=== PATIENT | female | born 1965 ===

== ENCOUNTER 2023-07-12 08:15 | Inpatient (IN) | payer OTHER ==
[~2023-07-12] VITALS: Ht 157.5 cm; Wt 77.1 kg
[2023-07-12 09:50] LABS: HEMATOCRIT 36.9 % (36.0-45.00); MEAN CELL VOLUME 86.7 fL (80.00-100.00); MEAN CORPUSCULAR HEMOGLOBIN 30.6 pg (27.00-32.0); MEAN CORPUSCULAR HGB CONC 35.3 g/dl (32.0-36.0); PLATELET COUNT 260 K/uL (150-450); RED BLOOD COUNT 4.25 M/uL (4.00-6.00); RED CELL DISTRIBUTION WIDTH 13.6 % (11.5-14.5)
[2023-07-12 10:09] LABS: PH,URINE 5.5 (5.0-8.0); URINE APPEARANCE Clear; URINE BILIRRUBIN Negative (NEGATIVE); URINE BLOOD Negative; URINE COLOR Yellow; URINE GLUCOSE Negative (NEGATIVE); URINE LEUKOCYTE Negative; URINE NITRATE Negative; URINE PROTEIN Negative (NEGATIVE); URINE UROBILINOGEN 0.2 E.U./dl
[2023-07-12 10:18] LABS: INR < 0.93; PARTIAL THROMBOPLASTIN TIME 27.9 SECONDS (22.0-34.0); PROTHROMBIN TIME 9.7 SECONDS (9.0-11.5)
[2023-07-12 10:21] LABS: URINE BACTERIA 12.5 uL (0.0-1933); URINE EPITHELIAL CELLS 8.1 uL (0.0-38.8); URINE RBC 4.1 uL (0.0-20.8); URINE WBC 3.8 uL (0.0-23.2)
[2023-07-12 10:35] LABS: ALBUMIN 3.7 gm/dL (3.4-5.0); BILIRUBIN TOTAL 0.47 mg/dL (0.3-1.2); CALCIUM 9.2 mg/dL (8.5-10.1); CREATININE SERUM 0.9 mg/dL (0.55-1.02); GFR 64.77; GLOBULINA 3.9 G/DL (2.4-3.5); POTASSIUM 4.2 mEq/L (3.5-5.1); TOTAL PROTEIN 7.6 gm/dL (6.4-8.2)
[2023-07-12] MEDS ORDERED: COZAAR100 MG PO (10:39)
[2023-07-12] MEDS ORDERED: CRESTOR40 MG PO (10:40)
[2023-07-12] MEDS ORDERED: PROAIR RESPICL90 MCG IH (10:40)
[2023-07-12] MEDS ORDERED: SYMBICORT 16010.2 GM IH (10:40)
[2023-07-12] MEDS ORDERED: NABUMETONE750 MG PO (10:43)
[2023-07-12] MEDS ORDERED: ALPRAZOLAM ODT1 MG PO (10:43)
[2023-07-12] MEDS ORDERED: ZEGERID 40 MG1 EACH PO (10:44)
[2023-07-12] MEDS ORDERED: LITHOBID300 M1 PO (10:44)
[2023-07-12] MEDS ORDERED: LEXAPRO5 MG PO (10:44)
[2023-07-18 22:29] LABS: HEMATOCRIT 36.2 % (36.0-45.00); HEMOGLOBIN 12.2 g/dL (12.0-15.00); MEAN CELL VOLUME 88.1 fL (80.00-100.00); MEAN CORPUSCULAR HEMOGLOBIN 29.7 pg (27.00-32.0); MEAN CORPUSCULAR HGB CONC 33.7 g/dl (32.0-36.0); PLATELET COUNT 237 K/uL (150-450); RED BLOOD COUNT 4.11 M/uL (4.00-6.00); RED CELL DISTRIBUTION WIDTH 13.2 % (11.5-14.5)
[2023-07-19] MEDS ORDERED: IBU600 MG PO (09:02)
[2023-07-19] MEDS ORDERED: PERCOCET 5-3251 EACH PO (09:04)
== END 2023-07-19 13:28 | disposition home or self-care (01) | DRG 741 ==
LOC: O/R 07-18 06:11 → OB/GYN 07-18 08:15
PROVIDERS: ADMIT Obstetrics & Gynecology; ATTEND Obstetrics & Gynecology
PROC: 0UT7FZZ Resection of Bilateral Fallopian Tubes, Via Natural or Artificial Opening With Percutaneous Endoscopic Assistance (ICD-10-PCS; 2023-07-18)
PROC: 0UT2FZZ Resection of Bilateral Ovaries, Via Natural or Artificial Opening With Percutaneous Endoscopic Assistance (ICD-10-PCS; 2023-07-18)
PROC: 0TJB8ZZ Inspection of Bladder, Via Natural or Artificial Opening Endoscopic (ICD-10-PCS; 2023-07-18)
PROC: 0UT9FZZ Resection of Uterus, Via Natural or Artificial Opening With Percutaneous Endoscopic Assistance (ICD-10-PCS; principal; 2023-07-18 10:45)
DX: C54.1 Malignant neoplasm of endometrium (principal); Z20.822 Contact with and (suspected) exposure to COVID-19; N80.03 Adenomyosis of the uterus; D25.0 Submucous leiomyoma of uterus; N84.0 Polyp of corpus uteri; N72 Inflammatory disease of cervix uteri